=== PATIENT | female | born 1985 | race Caucasian/White ===

== ENCOUNTER 2018-10-29 14:47 | Emergency (ER) | payer OTHER ==
[~2018-10-29] VITALS: Ht 170.2 cm; Wt 142.9 kg
[2018-10-29] MEDS ORDERED: DOXYCYCLINE 10100 MG PO (17:05)
[2018-10-29] MEDS ORDERED: ULTRAM 50MG TAB50 MG PO (17:10)
[2018-10-29 18:05] VITALS: BP 158/95
== END 2018-10-29 18:06 | disposition home or self-care (01) ==
LOC: ER 14:47
DX: L02.215 Cutaneous abscess of perineum (principal); Z88.0 Allergy status to penicillin

== ENCOUNTER 2019-08-12 16:33 | Emergency (ER) | payer OTHER ==
[~2019-08-12] VITALS: Ht 170.2 cm; Wt 136.1 kg
[~2019-08-12 16:33] MED LIST: DOXYCYCLINE 10100 MG PO; ULTRAM 50MG TAB50 MG PO
[2019-08-12 17:32] LABS: URINE BILIRUBIN NEGATIVE (Negative); URINE BLOOD NEGATIVE (Negative); URINE CLARITY CLEAR; URINE COLOR YELLOW; URINE GLUCOSE-RANDOM* NEGATIVE (Negative); URINE KETONES NEGATIVE (Negative); URINE NITRITE-REFLEX NEGATIVE (Negative); URINE PROTEIN (DIPSTICK) NEGATIVE (Negative); URINE SPECIFIC GRAVITY 1.025 (1.005-1.035); URINE UROBILINOGEN 0.2 E.U./dl (0.2-1.0)
[2019-08-12 17:33] LABS: URINE LEUKOCYTES-REFLEX 2+ (Negative)
[2019-08-12 17:42] LABS: BACTERIA-REFLEX 1-9 Few /HPF (None Seen); CASTS None Seen /LPF (None Seen); CRYSTALS None Seen /LPF (None Seen); SQUAMOUS 4-10 Moderate /LPF (0-3); URINE RBC None Seen /HPF (0-2)
[2019-08-12 19:00] LABS: ABSOLUTE NEUTROPHILS 6.2 thou/uL (1.4-8.2); BASOPHILS 0.7 % (0.0-2.0); HEMATOCRIT 41.4 % (37.0-47.0); HEMOGLOBIN 13.9 gm/dL (12.0-15.0); MCH 28.2 pg (26.0-34.0); MCHC 33.5 g/dL (28.0-37.0); MCV 84.1 fL (80.0-100.0); MONOCYTES 5.2 % (1.0-8.0); PLATELET COUNT 328 thou/uL (150-400); POLYS 67.1 % (36.0-66.0); RBC 4.93 mil/uL (4.20-5.00); RDW 15.6 % (10.5-14.5); WBC 9.3 thou/uL (4.0-11.0)
[2019-08-12 19:07] LABS: ANION GAP 7 mmol/L (7-16); BUN 12 mg/dL (7-18); CALCIUM 8.6 mg/dL (8.5-10.1); CHLORIDE 103 mmol/L (98-107); CO2 26 mmol/L (21-32); CREATININE 0.9 mg/dL (0.6-1.0); GLUCOSE 98 mg/dL (74-106); SODIUM 136 mmol/L (136-145)
[2019-08-12 19:12] LABS: APTT 26.1 Seconds (24.5-32.8); PROTIME 9.7 Seconds (9.3-11.4)
[2019-08-12 19:18] LABS: ALBUMIN 3.2 g/dL (3.4-5.0); LIPASE 127 U/L (73-393); SGOT 22 U/L (15-37); SGPT 35 U/L (30-65); TOTAL BILIRUBIN 0.2 mg/dL (0.2-1.0); TOTAL PROTEIN 6.8 g/dL (6.4-8.2); TROPONIN-I <0.06 ng/mL (<0.06)
[2019-08-12] MEDS ORDERED: PREDNISONE 10 M10 MG PO (20:57)
[2019-08-12] MEDS ORDERED: LISINOPRIL10 MG PO (20:57)
[2019-08-12] MEDS ORDERED: VOLTAREN GEL 1100 G1 TOP (20:57)
[2019-08-12] MEDS ORDERED: FLEXERIL PO (20:57)
[2019-08-12 21:30] VITALS: BP 167/94
--- NOTE | 2019-08-13 07:41 | EKG ---
[facility] [place] [address] ELECTROCARDIOGRAM REPORT Name: DIRK ANDRADE Room #: DEP 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
== END 2019-08-12 21:37 | disposition home or self-care (01) ==
LOC: ER 16:33
PROVIDERS: Physician Assistant
DX: M51.14 Intervertebral disc disorders with radiculopathy, thoracic region (principal); Z88.0 Allergy status to penicillin; Z79.1 Long term (current) use of non-steroidal anti-inflammatories (NSAID); Z79.899 Other long term (current) drug therapy